=== PATIENT | male | born 1970 ===

== ENCOUNTER 2018-10-06 17:18 | Observation (INO) | payer SELFPAY ==
--- NOTE | 2018-10-06 17:55 | ED PDOC ---
HPI:STROKE - Time Time: 17:45 - Historian Historian: Patient - Chief Complaint Chief Complaint: Facial droop (left sided), other (left arm heaviness) - Timing Timing: Currently Symptomatic - Notes: Notes:: 47 year old male with no significant past medical history presents to the ED with left sided facial droop and left arm heaviness present on waking up. Patidalila white reports he had left sided, posterior head pain x4 days ago. Yesterday, patient noticed his left eye was tearing. This morning he woke up with left side facial droop, trouble closing his left eye, and left arm heaviness. Patient denies any type of pain, weakness or trouble ambulating. No symptoms elsewhere. No neck pain. PMD: Adelaida NIHSS Stroke Scale - Date/Time Evaluation Performed Date Performed: 10/06/18 Time Performed: 17:46 When Was NIHSS Performed: Baseline - How Severe is the Stroke Level of Consciousness: 0=Alert LOC to Questions: 0=Both comments correct LOC to commands: 0=Obeys both correctly Best Gaze: 0=Normal Visual: 0=No visual loss Facial: 2=Partial (lower face paralysis) Motor Arm - Left: 0=No drift Motor Arm - Right: 0=No drift Motor Leg - Left: 0=No drift Motor Leg - Right: 0=No drift Limb Ataxia: 0=Absent Sensory: 0=Normal Best Language: 0=No aphasia Dysarthia: 0=Normal articulation Extinction & Inattention (Neglect): 0=Normal, no object Score: 2 rTPA Inclusion/Exclusion - Refusal of Treatment Patient Refused Treatment: No - Inclusion Criteria for Altepase Patient is 18 years or Older: Yes The Clinical Diagnosis of Ischemic Stroke That is Causing a Potentially Disabling Neurological Deficit: No Time of Onset is Well Established to be Less Than 270 Minute Before Treatment Would Begin: No Risk/Benefit Discussed With Patient/Family Member Present: No - Exclusion Criteria for Altepase Uncontrolled Hypertension at Time of Treatment (Systolic BP above 185 or Diastolic BP above 110 mmHg): No Past Medical History Reviewed: Historical Data, Nursing Documentation, Vital Signs Vital Signs: Last Vital Signs Temp 98.2 F 10/06/18 17:43 Pulse 78 10/06/18 17:43 Resp 16 10/06/18 17:43 BP 139/88 10/06/18 17:43 Pulse Ox 99 10/06/18 17:43 - Medical History PMH: HTN - Family History Family History: States: Unknown Family Hx - Home Medications Home Medications: Ambulatory Orders Medication Instructions Recorded No Known Home Med 10/06/18 - Allergies Allergies/Adverse Reactions: Allergies Allergy/AdvReac Type Severity Reaction Status Date / Time No Known Allergies Allergy Verified 10/06/18 17:45 Review of Systems ROS Statement: Except As Marked, All Systems Reviewed And Found Negative Eyes: Positive for: Other (blurry vision ) Neurological: Positive for: Other (left arm heaviness, left sided facial droop). Negative for: Dizziness Physical Exam - Reviewed Nursing Documentation Reviewed: Yes Vital Signs Reviewed: Yes - Physical Exam Appears: Positive for: Non-toxic, No Acute Distress Head Exam: Positive for: ATRAUMATIC, NORMAL INSPECTION, NORMOCEPHALIC Skin: Positive for: Normal Color, Warm, DRY Eye Exam: Positive for: EOMI, PERRL, Other (left lower lide mild swelling). Negative for: Conjunctival injection, Scleral icterus ENT: Negative for: Nasal Congestion, Pharyngeal Erythema Cardiovascular/Chest: Positive for: Regular Rate, Rhythm Respiratory: Positive for: Normal Breath Sounds Gastrointestinal/Abdominal: Positive for: Soft. Negative for: Tenderness Back: Positive for: Normal Inspection. Negative for: L CVA Tenderness, R CVA Tenderness Extremity: Positive for: Normal ROM. Negative for: Tenderness, Pedal Edema Neurologic/Psych: Positive for: Alert, Oriented, Facial Droop (left lower), Other (equal strength). Negative for: Motor/Sensory Deficits, Aphasia - Laboratory Results Result Diagrams: 10/06/18 18:00 10/06/18 18:00 Lab Results: 386 glucose and elevated chol - ECG ECG: Positive for: Interpreted By Me, Viewed By Me ECG Rhythm: Positive for: Normal QRS, Normal ST Segment, Sinus Rhythm O2 Sat by Pulse Oximetry: 99 (RA) Pulse Ox Interpretation: Normal - Radiology X-Ray: Interpreted by Me, Viewed By Me - CT Scan/US ct Other Rad Studies (CT/US): Read By Radiologist Other Rad Interpretation: no acute - Progress ED Course And Treament: 2029: Spoke with Dr. Rodriguez. Will admit tele obs. Dr. Son states it is not his pt. Wants hospitalist. Pt. pain free. Still has lower droop. 2041: Stable. Spoke with Dr. Ojeda. Will consult. Wants asa and mri in the morning. Medical Decision Making Medical Decision Making: Time: 1745 Code stroke activated. Time: 1745 --Type and screen --CT head --EKG --CMP --Hemoglobin A1C --Lipid panel --Troponin --CXR --NS --Glucose Time:1753 CT Head FINDINGS: HEMORRHAGE: No intracranial hemorrhage. BRAIN: No mass effect or edema. No atrophy or chronic microvascular ischemic changes. VENTRICLES: Unremarkable. No hydrocephalus. CALVARIUM: Unremarkable. PARANASAL SINUSES: Unremarkable as visualized. No significant inflammatory changes. MASTOID AIR CELLS: Unremarkable as visualized. No inflammatory changes. OTHER FINDINGS: None. IMPRESSION: No acute intracranial pathology. Findings discussed with Dr. Amezcua by Dr. Santamaria at 5:57 p.m. on 10/06/2018. Scribe Attestation: Documented by Katlyn Real, acting as a scribe for Duane Amezcua MD. Provider Scribe Attestation: All medical record entries made by the Scribe were at my direction and personally dictated by me. I have reviewed the chart and agree that the record accurately reflects my personal performance of the history, physical exam, medical decision making, and the department course for this patient. I have also personally directed, reviewed, and agree with the discharge instructions and disposition. Disposition - Clinical Impression Clinical Impression: Hypercholesteremia, Hyperglycemia, TIA (transient ischemic attack) - Patient ED Disposition Is Patient to be Admitted: Yes Counseled Patient/Family Regarding: Studies Performed, Diagnosis - Disposition Disposition Time: 20:34 Condition: FAIR - Pt Status Changed To: Hospital Disposition Of: Observation - POA Present On Arrival: Poor Glycemic Control
--- NOTE | 2018-10-06 18:02 | CT ---
Date of service: 10/06/2018 PROCEDURE: CT HEAD WITHOUT CONTRAST. HISTORY: code stroke COMPARISON: None available. TECHNIQUE: Axial computed tomography images were obtained through the head/brain without intravenous contrast. Radiation dose: Total exam DLP = 863.31 mGy-cm. This CT exam was performed using one or more of the following dose reduction techniques: Automated exposure control, adjustment of the mA and/or kV according to patient size, and/or use of iterative reconstruction technique. FINDINGS: HEMORRHAGE: No intracranial hemorrhage. BRAIN: No mass effect or edema. No atrophy or chronic microvascular ischemic changes. VENTRICLES: Unremarkable. No hydrocephalus. CALVARIUM: Unremarkable. PARANASAL SINUSES: Unremarkable as visualized. No significant inflammatory changes. MASTOID AIR CELLS: Unremarkable as visualized. No inflammatory changes. OTHER FINDINGS: None. IMPRESSION: No acute intracranial pathology. Findings discussed with Dr. Amezcua by Dr. Santamaria at 5:57 p.m. on 10/06/2018.
[2018-10-06] MEDS: Sodium Chloride 0.9% 1,000 ML IV SCH (18:03)
[2018-10-06 18:16] LABS: BASO % 0.5 % (0.0-2.0); EOS # 0.1 K/uL (0.0-0.7); EOS % 1.3 % (0.0-4.0); HEMOGLOBIN 16.8 g/dL (12.0-18.0); LYMPH # 1.9 K/uL (1.0-4.3); LYMPH % 29.7 % (20.0-40.0); MEAN CELL VOLUME 86.8 fl (80.0-94.0); MEAN CORPUSCULAR HEMOGLOBIN 29.6 pg (27.0-31.0); MEAN CORPUSCULAR HGB CONC 34.1 g/dL (33.0-37.0); MEAN PLATELET VOLUME 11.3 fl (7.2-11.7); MONO # 0.5 K/uL (0.0-0.8); MONO % 8.1 % (0.0-10.0); NEUT # 3.9 K/uL (1.8-7.0); NEUT % 60.4 % (50.0-75.0); RBC 5.68 Mil/uL (4.40-5.90); RED CELL DISTRIBUTION WIDTH 12.7 % (11.5-14.5); WHITE BLOOD COUNT 6.4 K/uL (4.8-10.8)
[2018-10-06 18:21] LABS: INR 0.9; PROTHROMBIN TIME 10.5 Seconds (9.8-13.1)
[2018-10-06 18:22] LABS: ALB/GLOB RATIO 1.3 (1.0-2.1); ALBUMIN 4.4 g/dL (3.5-5.0); ALT/SGPT 52 U/L (21-72); AST/SGOT 24 U/L (17-59); BLOOD UREA NITROGEN 9 mg/dl (9-20); CALCIUM 9.5 mg/dL (8.4-10.2); GFR NON-AFRICAN AMERICAN > 60; HDL CHOLESTEROL 42 MG/DL (30-70)
[2018-10-06 18:24] LABS: PARTIAL THROMBOPLASTIN TIME 28.4 Seconds (25.6-37.1)
[2018-10-06 18:32] LABS: LDL CHOLESTEROL 122 mg/dL (0-129)
[2018-10-06] MEDS ORDERED: Insulin Regular 100 units/ml IV STA (19:48)
[2018-10-06] MEDS ORDERED: Insulin Regular 100 units/ml ONE (20:43)
[2018-10-06] MEDS ORDERED: Glucagon Recombinant 1 mg Inj IM PRN (21:04)
[2018-10-06] MEDS ORDERED: Dextrose 50% SYRINGE Inj (50 ml) IV PRN (21:04)
--- NOTE | 2018-10-06 21:17 | CP.PCM.HP ---
<Shireen Arevalo - Last Filed: 10/06/18 22:58> History of Present Illness - History of Present Illness History of Present Illness: 47-year-old male with no past medical history presents for left-sided facial droop (forehead sparing) with numbness, left arm "heaviness" and left eye injection with tearing which began earlier today (about 12 hours prior to ED presentation). He also reports a 4 day duration of left ear pain localized to behind his ear (mastoid area) associated with sinusitis-like symptoms. Pain 5/10 and does not radiate, no alleviating or aggravating factors. Admits to unil ateral blurry vision due to the left eye tearing but denies painless loss of vision/amaurosis fugax and floaters. No loss of strength, syncope or recent head trauma. Denies fever, chills, tinnitus, vertigo, ear drainage, photophobia, slurred speech, weight loss, chest pain, difficulty breathing, headache, SOB and recent swimming. PMD: denies PMH: denies Meds: denies FHx: Father - DM2, Brother - CVA, DM2 Social: 5-6 cigarettes/day x10+ years, denies alcohol and illicit drugs Surgical Hx: denies ED Course: Vitals: BP 139/88 HR 78 RR 16 SPO2 99% (RA) -CBC: wnl -CMP: wnl -Glucose 386 -CT head wnl, no acute cranial pathology -Hemoglobin A1C pending -Lipid panel: triglycerides 392, cholesterol 217 -Troponin <0.0120 -EKG -CXR: no active disease, pending final read -NS bolus -Insulin 5 units STAT Present on Admission - Present on Admission Any Indicators Present on Admission: No Review of Systems - EENT Eyes: As Per HPI Nose/Mouth/Throat: As Per HPI - Cardiovascular Cardiovascular: absent: Chest Pain, Leg Edema, Lightheadedness, Palpitations - Respiratory Respiratory: absent: Cough, Dyspnea, Chest Congestion - Gastrointestinal Gastrointestinal: absent: Abdominal Pain - Genitourinary Genitourinary: absent: Dysuria - Musculoskeletal Musculoskeletal: absent: Back Pain - Neurological Neurological: As Per HPI - Psychiatric Psychiatric: absent: Anxiety Past Patient History - Past Social History Smoking Status: Light Smoker < 10 Cigarettes Daily - CARDIAC Hx Hypertension: Yes - PSYCHIATRIC Hx Substance Use: No - SURGICAL HISTORY Hx Surgeries: No Meds Allergies/Adverse Reactions: Allergies Allergy/AdvReac Type Severity Reaction Status Date / Time No Known Allergies Allergy Verified 10/06/18 17:45 Physical Exam - Constitutional Appears: Non-toxic - Eye Exam Eye Exam: Conjunctival injection (left), Periorbital swelling (left) Pupil Exam: PERRL Additional comments: denies pain with movement, CN 2,3,4,6 intact, increased tearing (clear) - ENT Exam ENT Exam: Mucous Membranes Moist Additional comments: left mouth droop (forehead sparing), exquisitely tender behind L ear (x 4day duration), erythema, induration, tenderness and swelling noted in area and L submandibular, excessive cerumen noted in L canal - Expanded ENT Exam Expanded Ear exam: absent: External Canal Tenderness TM/Canal Exam: Mastoid Tenderness: Left Mouth exam: tongue normal. absent: drooling (left mouth droop), tongue elevation Teeth exam: normal external inspection Throat exam: Normal Inspection - Neck Exam Neck exam: Positive for: Tenderness (left, submandibular) Additional comments: left: mild erythema and swelling - Respiratory Exam Respiratory Exam: NORMAL BREATHING PATTERN - Cardiovascular Exam Cardiovascular Exam: REGULAR RHYTHM - GI/Abdominal Exam GI & Abdominal Exam: Soft. absent: Tenderness - Neurological Exam Neurological exam: Alert, CN II-XII Intact (left mouth droop, all other CN intact), Oriented x3 - Expanded Neurological Exam Expanded Cranial nerves: Facial Palsey w/Forehead Movement: Abnormal Left, Facial Sensation: Abnormal Left, Tongue Deviation: Normal Neuro motor strength exam: Left Upper Extremity: 5, Right Upper Extremity: 5, Left Lower Extremity: 5, Right Lower Extremity: 5 - Psychiatric Exam Psychiatric exam: Normal Affect, Normal Mood - Skin Skin Exam: Dry, Intact, Normal Color, Warm Results - Vital Signs Recent Vital Signs: Last Vital Signs Temp 98.2 F 10/06/18 17:43 Pulse 92 H 10/06/18 20:49 Resp 16 10/06/18 20:49 BP 144/97 H 10/06/18 20:49 Pulse Ox 98 10/06/18 20:49 - Labs Result Diagrams: 10/06/18 18:00 10/06/18 18:00 Labs: Laboratory Results - last 24 hr 10/06/18 10/06/18 10/06/18 18:00 18:00 18:00 WBC 6.4 RBC 5.68 Hgb 16.8 Hct 49.3 MCV 86.8 MCH 29.6 MCHC 34.1 RDW 12.7 Plt Count 100 L MPV 11.3 Neut % (Auto) 60.4 Lymph % (Auto) 29.7 Osborne % (Auto) 8.1 Eos % (Auto) 1.3 Baso % (Auto) 0.5 Neut # (Auto) 3.9 Lymph # (Auto) 1.9 Osborne # (Auto) 0.5 Eos # (Auto) 0.1 Baso # (Auto) 0.0 PT 10.5 INR 0.9 APTT 28.4 Sodium 137 Potassium 4.0 Chloride 99 Carbon Dioxide 23 Anion Gap 19 BUN 9 Creatinine 0.5 L Est GFR ( Amer) > 60 Est GFR (Non-Af Amer) > 60 Random Glucose 386 H Calcium 9.5 Total Bilirubin 0.5 AST 24 ALT 52 Alkaline Phosphatase 221 H Troponin I < 0.0120 Total Protein 7.7 Albumin 4.4 Globulin 3.3 Albumin/Globulin Ratio 1.3 Triglycerides 392 H Cholesterol 217 H LDL Cholesterol Direct 122 HDL Cholesterol 42 Blood Type Antibody Screen BBK History Checked 10/06/18 18:00 WBC RBC Hgb Hct MCV MCH MCHC RDW Plt Count MPV Neut % (Auto) Lymph % (Auto) Osborne % (Auto) Eos % (Auto) Baso % (Auto) Neut # (Auto) Lymph # (Auto) Osborne # (Auto) Eos # (Auto) Baso # (Auto) PT INR APTT Sodium Potassium Chloride Carbon Dioxide Anion Gap BUN Creatinine Est GFR ( Amer) Est GFR (Non-Af Amer) Random Glucose Calcium Total Bilirubin AST ALT Alkaline Phosphatase Troponin I Total Protein Albumin Globulin Albumin/Globulin Ratio Triglycerides Cholesterol LDL Cholesterol Direct HDL Cholesterol Blood Type B POSITIVE Antibody Screen Negative BBK History Checked No verified bt Assessment & Plan - Assessment and Plan (Free Text) Assessment: 47-year-old male with no PMH admitted for new-onset facial drooping and left arm "heaviness" which began about 12 hours prior to presentation. Mansfield's Palsy vs Mastoiditis vs TIA/CVA - CT (10/06): no acute cranial pathology - PE: exquisitely tender behind L ear (x 4day duration), erythema, induration, tenderness and swelling noted in area radiating to L submandibular; concerning for mastoiditis - WBC 6.4 - ASA 325 mg PO, as per Dr Ojeda - Neuro consult, recommendations appreciated - Follow-up MRI (10/07) - Follow-up TSH - Follow-up HIV New onset DM2 - Metformin 500 mg BID - Lipitor 20 mg daily - Insulin sliding scale, hypoglycemia protocol - Follow-up HgA1C DVT Prophylaxis - SCDs <Atiya Rodriguez - Last Filed: 10/07/18 04:51> Results - Vital Signs Recent Vital Signs: Last Vital Signs Temp 98.1 F 10/07/18 00:23 Pulse 76 10/07/18 00:23 Resp 19 10/07/18 00:23 BP 113/71 10/07/18 00:23 Pulse Ox 99 10/07/18 00:23 - Labs Result Diagrams: 10/06/18 18:00 10/06/18 18:00 Labs: Laboratory Results - last 24 hr 10/06/18 10/06/18 10/06/18 18:00 18:00 18:00 WBC 6.4 RBC 5.68 Hgb 16.8 Hct 49.3 MCV 86.8 MCH 29.6 MCHC 34.1 RDW 12.7 Plt Count 100 L MPV 11.3 Neut % (Auto) 60.4 Lymph % (Auto) 29.7 Osborne % (Auto) 8.1 Eos % (Auto) 1.3 Baso % (Auto) 0.5 Neut # (Auto) 3.9 Lymph # (Auto) 1.9 Osborne # (Auto) 0.5 Eos # (Auto) 0.1 Baso # (Auto) 0.0 PT 10.5 INR 0.9 APTT 28.4 Sodium 137 Potassium 4.0 Chloride 99 Carbon Dioxide 23 Anion Gap 19 BUN 9 Creatinine 0.5 L Est GFR ( Amer) > 60 Est GFR (Non-Af Amer) > 60 POC Glucose (mg/dL) Random Glucose 386 H Calcium 9.5 Total Bilirubin 0.5 AST 24 ALT 52 Alkaline Phosphatase 221 H Troponin I < 0.0120 Total Protein 7.7 Albumin 4.4 Globulin 3.3 Albumin/Globulin Ratio 1.3 Triglycerides 392 H Cholesterol 217 H LDL Cholesterol Direct 122 HDL Cholesterol 42 Blood Type Antibody Screen BBK History Checked 10/06/18 10/06/18 18:00 22:30 WBC RBC Hgb Hct MCV MCH MCHC RDW Plt Count MPV Neut % (Auto) Lymph % (Auto) Osborne % (Auto) Eos % (Auto) Baso % (Auto) Neut # (Auto) Lymph # (Auto) Osborne # (Auto) Eos # (Auto) Baso # (Auto) PT INR APTT Sodium Potassium Chloride Carbon Dioxide Anion Gap BUN Creatinine Est GFR ( Amer) Est GFR (Non-Af Amer) POC Glucose (mg/dL) 219 H Random Glucose Calcium Total Bilirubin AST ALT Alkaline Phosphatase Troponin I Total Protein Albumin Globulin Albumin/Globulin Ratio Triglycerides Cholesterol LDL Cholesterol Direct HDL Cholesterol Blood Type B POSITIVE Antibody Screen Negative BBK History Checked No verified bt Attending/Attestation - Attestation I have personally seen and examined this patient.: Yes I have fully participated in the care of the patient.: Yes I have reviewed all pertinent clinical information: Yes Notes (Text): 10/07/18 04:41 47 year old male no known PMH presented to ED today for ear pain x4 days, and 1 day history of eye tearing, foreheadsparing facial droop, and paresthesia the the left side of his mouth. Patient has retroauricular tenderness, erythema, and some induration. No WBC, afebrile. CT head was negative. Eval to rule out TIA/CVA with MRI in AM, neuro consulted in ED. Initiate zosyn, consider ENT consult AM. Pt also found to be hyperglycemic 300s, will initiate DM therapy.
[2018-10-06] MEDS: Insulin Regular 100 units/ml SC SCH (23:01)
[2018-10-07] MEDS: Sodium Chloride 0.9% 1,000 ML IV SCH (04:55)
[2018-10-07] MEDS ORDERED: Influenza Vaccine (5 YR UP)/PF 60 MCG/0.5 ML SYR IM ONE (05:08)
[2018-10-07] MEDS ORDERED: Pneumococcal 23-Valent Vaccine IM ONE (05:08)
[2018-10-07 05:16] VITALS: RESP 20
[2018-10-07] MEDS: Piperacillin/Tazobact 3.375 GM in Sodium Chloride 0.9% 100 ML IVPB SCH ×2 (05:25→11:40)
[2018-10-07] MEDS ORDERED: Influenza Vaccine 60 mcg/0.5 mL SYR (4YR UP) IM ONE (06:28)
[2018-10-07 08:47] LABS: BASO % 0.4 % (0.0-2.0); EOS # 0.2 K/uL (0.0-0.7); EOS % 3.3 % (0.0-4.0); HEMOGLOBIN 15.3 g/dL (12.0-18.0); LYMPH # 2.5 K/uL (1.0-4.3); LYMPH % 38.1 % (20.0-40.0); MEAN CELL VOLUME 88.2 fl (80.0-94.0); MEAN CORPUSCULAR HEMOGLOBIN 29.6 pg (27.0-31.0); MEAN CORPUSCULAR HGB CONC 33.5 g/dL (33.0-37.0); MEAN PLATELET VOLUME 11.2 fl (7.2-11.7); MONO # 0.5 K/uL (0.0-0.8); MONO % 7.8 % (0.0-10.0); NEUT # 3.3 K/uL (1.8-7.0); NEUT % 50.4 % (50.0-75.0); NRBC % 0.1 % (0.0-0.0); RBC 5.16 Mil/uL (4.40-5.90); RED CELL DISTRIBUTION WIDTH 13.1 % (11.5-14.5); WHITE BLOOD COUNT 6.6 K/uL (4.8-10.8)
[2018-10-07 09:12] LABS: BLOOD UREA NITROGEN 12 mg/dl (9-20); CALCIUM 8.6 mg/dL (8.4-10.2); GFR NON-AFRICAN AMERICAN > 60
--- NOTE | 2018-10-07 09:22 | CARD ---
APPROVED REPORT Date of service: 10/06/2018 EKG Measurement Heart [id number] <Conclusion> Normal sinus rhythm Normal ECG
[2018-10-07] MEDS ORDERED: Gadodiamide 287 MG/ML VIAL (15ML) IV ONE (09:50)
--- NOTE | 2018-10-07 10:29 | CP.PCM.CON ---
History of Present Illness - History of Present Illness History of Present Illness: Neurology Consultation Note: Consult requested by Dr. Atiya Rodriguez The patient is a 47-year-old man with a past medical history of DM, who developed left facial droop, ear pain and some blurry vision of the left eye that started 12 hours prior to presentation to the ED. Labs showed serum glucose of 386 mg/dL. The patient is not on any medications at home. Non-contrast CT scan of the head did not show any acute findings. Aspirin was given in the ED. 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 Review of Systems - Constitutional Constitutional: As Per HPI - EENT Eyes: absent: As Per HPI, Blind Spots, Blurred Vision, Change in Vision, Decreased Night Vision, Diplopia, Discharge, Dry Eye, Exophthalmos, Floaters, Irritation, Itchy Eyes, Loss of Peripheral Vision, Pain, Photophobia, Requires Corrective Lenses, Sees Flashes, Spots in Vision, Tunnel Vision, Other Visual Disturbances, Loss of Vision, Other Ears: absent: As Per HPI, Decreased Hearing, Ear Discharge, Ear Pain, Tinnitus, Abnormal Hearing, Disequilibrium, Dizziness, Other Nose/Mouth/Throat: absent: As Per HPI, Epistaxis, Nasal Congestion, Nasal Discharge, Nasal Obstruction, Nasal Trauma, Nose Pain, Post Nasal Drip, Sinus Pain, Sinus Pressure, Bleeding Gums, Change in Voice, Dental Pain, Dry Mouth, Dysphagia, Halitosis, Hoarsness, Lip Swelling, Mouth Lesions, Mouth Pain, Odynophagia, Sore Throat, Throat Swelling, Tongue Swelling, Facial Pain, Neck Pain, Neck Mass, Other - Cardiovascular Cardiovascular: absent: As Per HPI, Acrocyanosis, Chest Pain, Chest Pain at Rest, Chest Pain with Activity, Claudication, Diaphoresis, Dyspnea, Dyspnea on Exertion, Edema, Irregular Heart Rhythm, Pain Radiating to Arm/Neck/Jaw, Leg Edema, Leg Ulcers, Lightheadedness, Orthopnea, Palpitations, Paroxysmal Nocturnal Dyspnea, Pedal Edema, Radiating Pain, Rapid Heart Rate, Slow Heart Rate, Syncope, Other - Respiratory Respiratory: absent: As Per HPI, Cough, Dyspnea, Hemoptysis, Dyspnea on Exertion, Wheezing, Snoring, Stridor, Pain on Inspiration, Chest Congestion, Excessive Mucous Production, Change in Mucous Color, Pain with Coughing, Other - Gastrointestinal Gastrointestinal: absent: As Per HPI, Abdominal Pain, Belching, Bloating, Change in Bowel Habits, Change in Stool Character, Coffee Ground Emesis, Constipation, Cramping, Diarrhea, Dyspepsia, Dysphagia, Early Satiety, Excessive Flatus, Fecal Incontinence, Heartburn, Hematemesis, Hematochezia, Loose Stools, Melena, Nausea, Odynophagia, Temesmus, Vomiting, Other - Musculoskeletal Musculoskeletal: absent: As Per HPI, Abnormal Gait, Arthralgias, Atrophy, Back Pain, Deformity, Joint Swelling, Limited Range of Motion, Loss of Height, Muscle Cramps, Muscle Weakness, Myalgias, Neck Pain, Numbness, Radiating Pain into Limb, Stiffness, Tingling, Other - Integumentary Integumentary: absent: As Per HPI, Acne, Alopecia, Bleeding Lesions, Change in Hair, Change in Nails, Change in Pigmentation, Changing Lesions, Dry Skin, Erythema, Furuncle, Hirsutism, Lesions, New Lesions, Non-Healing Lesions, Photosensitivity, Pruritus, Rash, Skin Pain, Skin Ulcer, Sores, Striae, Sw elling, Unusual Bruising, Wounds, Jaundice, Other - Neurological Neurological: As Per HPI - Psychiatric Psychiatric: absent: As Per HPI, Abnormal Sleep Pattern, Anhedonia, Anxiety, Auditory Hallucinations, Behavioral Changes, Change in Appetite, Change in Libido, Confusion, Depression, Difficulty Concentrating, Hallucinations, Homicidal Ideation, Hopelessness, Irritability, Memory Loss, Mood Swings, Panic Attacks, Paranoia, Suicidal Ideation, Visual Hallucinations, Tactile Hallucinations, Other - Endocrine Endocrine: absent: As Per HPI, Change in Body Appearance, Change in Libido, Cold Intolorance, Deepening of Voice, Excessive Sweating, Fatigue, Flushing, Heat Intolorance, Increase in Ring/Shoe/Hat Size, Palpitations, Polydipsia, Polyphagia, Polyuria, Other - Hematologic/Lymphatic Hematologic: absent: As Per HPI, Easy Bleeding, Easy Bruising, Lymphadenopathy, Other Past Patient History - Past Medical History & Family History Past Medical History?: Yes - Past Social History Smoking Status: Light Smoker < 10 Cigarettes Daily - CARDIAC Hx Hypertension: Yes - PULMONARY Hx Respiratory Disorders: No - NEUROLOGICAL Hx Neurological Disorder: No - HEENT Hx HEENT Problems: No - RENAL Hx Chronic Kidney Disease: No - ENDOCRINE/METABOLIC Hx Endocrine Disorders: Yes - HEMATOLOGICAL/ONCOLOGICAL Hx Blood Disorders: No - INTEGUMENTARY Hx Dermatological Problems: No - MUSCULOSKELETAL/RHEUMATOLOGICAL Hx Musculoskeletal Disorders: No Hx Falls: No - GASTROINTESTINAL Hx Gastrointestinal Disorders: No - GENITOURINARY/GYNECOLOGICAL Hx Genitourinary Disorders: No - PSYCHIATRIC Hx Substance Use: No - SURGICAL HISTORY Hx Surgeries: No - ANESTHESIA Hx Anesthesia: No Meds Allergies/Adverse Reactions: Allergies Allergy/AdvReac Type Severity Reaction Status Date / Time No Known Allergies Allergy Verified 10/06/18 17:45 - Medications Medications: Current Medications Atorvastatin Calcium (Lipitor) 20 mg PO DAILY [facility] Last Admin: 10/07/18 09:03 Dose: 20 mg Dextrose (Dextrose 50% Inj) 0 ml IV STAT PRN; Protocol PRN Reason: Hypoglycemia Protocol Dextrose (Glutose 15) 0 gm PO ONCE PRN; Protocol PRN Reason: Hypoglycemia Protocol Glucagon (Glucagen Diagnostic Kit) 0 mg IM STAT PRN; Protocol PRN Reason: Hypoglycemia Protocol Sodium Chloride (Sodium Chloride 0.9%) 1,000 mls @ 100 mls/hr IV .Q10H [facility] Last Admin: 10/07/18 04:55 Dose: 100 mls/hr Piperacillin Sod/Tazobactam (Sod 3.375 gm/ Sodium Chloride) 100 mls @ 100 mls/hr IVPB Q6H [facility]; Protocol Last Admin: 10/07/18 05:25 Dose: 100 mls/hr Insulin Human Regular (Humulin R) 0 units SC ACHS [facility]; Protocol Last Admin: 10/06/18 23:01 Dose: Not Given Metformin HCl (Glucophage) 500 mg PO BIDWM [facility] Physical Exam - Constitutional Appears: Well - Head Exam Head Exam: ATRAUMATIC, NORMAL INSPECTION, NORMOCEPHALIC - Eye Exam Eye Exam: EOMI, Normal appearance, PERRL Pupil Exam: NORMAL ACCOMODATION, PERRL - ENT Exam ENT Exam: Mucous Membranes Moist, Normal Exam - Neck Exam Neck exam: Positive for: Normal Inspection - Respiratory Exam Respiratory Exam: Clear to Auscultation Bilateral, NORMAL BREATHING PATTERN - Cardiovascular Exam Cardiovascular Exam: REGULAR RHYTHM, +S1, +S2 - GI/Abdominal Exam GI & Abdominal Exam: Normal Bowel Sounds, Soft. absent: Tenderness - Rectal Exam Rectal Exam: Deferred - Extremities Exam Extremities exam: Positive for: normal inspection - Back Exam Back exam: NORMAL INSPECTION - Neurological Exam Neurological exam: Alert, CN II-XII Intact, Normal Gait, Oriented x3, Reflexes Normal Additional comments: Left CN 7 palsy with difficulty in eye closure and forehead wrinkling, left facial droop. - Psychiatric Exam Psychiatric exam: Normal Affect, Normal Mood - Skin Skin Exam: Dry, Intact, Normal Color, Warm Results - Vital Signs Recent Vital Signs: Last Vital Signs Temp 98.7 F 10/07/18 07:55 Pulse 66 10/07/18 07:55 Resp 20 10/07/18 07:55 BP 108/58 L 10/07/18 07:55 Pulse Ox 98 10/07/18 07:55 - Labs Result Diagrams: 10/07/18 08:28 10/07/18 08:23 Labs: Laboratory Results - last 24 hr 10/06/18 10/06/18 10/06/18 18:00 18:00 18:00 WBC 6.4 RBC 5.68 Hgb 16.8 Hct 49.3 MCV 86.8 MCH 29.6 MCHC 34.1 RDW 12.7 Plt Count 100 L MPV 11.3 Neut % (Auto) 60.4 Lymph % (Auto) 29.7 [place] % (Auto) 8.1 Eos % (Auto) 1.3 Baso % (Auto) 0.5 Neut # (Auto) 3.9 Lymph # (Auto) 1.9 [place] # (Auto) 0.5 Eos # (Auto) 0.1 Baso # (Auto) 0.0 ESR PT 10.5 INR 0.9 APTT 28.4 Sodium 137 Potassium 4.0 Chloride 99 Carbon Dioxide 23 Anion Gap 19 BUN 9 Creatinine 0.5 L Est GFR ( Amer) > 60 Est GFR (Non-Af Amer) > 60 POC Glucose (mg/dL) Random Glucose 386 H Calcium 9.5 Total Bilirubin 0.5 AST 24 ALT 52 Alkaline Phosphatase 221 H Troponin I < 0.0120 Total Protein 7.7 Albumin 4.4 Globulin 3.3 Albumin/Globulin Ratio 1.3 Triglycerides 392 H Cholesterol 217 H LDL Cholesterol Direct 122 HDL Cholesterol 42 TSH 3rd Generation HIV-1 Ab Rapid Screen Blood Type Antibody Screen BBK History Checked 10/06/18 10/06/18 10/07/18 18:00 22:30 05:25 WBC Cancelled RBC Cancelled Hgb Cancelled Hct Cancelled MCV Cancelled MCH Cancelled MCHC Cancelled RDW Cancelled Plt Count Cancelled MPV Neut % (Auto) Lymph % (Auto) [place] % (Auto) Eos % (Auto) Baso % (Auto) Neut # (Auto) Lymph # (Auto) [place] # (Auto) Eos # (Auto) Baso # (Auto) ESR Cancelled PT INR APTT Sodium Potassium Chloride Carbon Dioxide Anion Gap BUN Creatinine Est GFR ( Amer) Est GFR (Non-Af Amer) POC Glucose (mg/dL) 219 H Random Glucose Calcium Total Bilirubin AST ALT Alkaline Phosphatase Troponin I Total Protein Albumin Globulin Albumin/Globulin Ratio Triglycerides Cholesterol LDL Cholesterol Direct HDL Cholesterol TSH 3rd Generation HIV-1 Ab Rapid Screen Blood Type B POSITIVE Antibody Screen Negative BBK History Checked No verified bt 10/07/18 10/07/18 10/07/18 05:25 05:25 06:27 WBC RBC Hgb Hct MCV MCH MCHC RDW Plt Count MPV Neut % (Auto) Lymph % (Auto) [place] % (Auto) Eos % (Auto) Baso % (Auto) Neut # (Auto) Lymph # (Auto) [place] # (Auto) Eos # (Auto) Baso # (Auto) ESR PT INR APTT Sodium Cancelled Potassium Cancelled Chloride Cancelled Carbon Dioxide Cancelled Anion Gap Cancelled BUN Cancelled Creatinine Cancelled Est GFR ( Amer) Cancelled Est GFR (Non-Af Amer) Cancelled POC Glucose (mg/dL) 192 H Random Glucose Cancelled Calcium Cancelled Total Bilirubin AST ALT Alkaline Phosphatase Troponin I Total Protein Albumin Globulin Albumin/Globulin Ratio Triglycerides Cholesterol LDL Cholesterol Direct HDL Cholesterol TSH 3rd Generation Cancelled HIV-1 Ab Rapid Screen Non reactive Blood Type Antibody Screen BBK History Checked 10/07/18 10/07/18 10/07/18 08:23 08:28 08:28 WBC 6.6 RBC 5.16 Hgb 15.3 Hct 45.5 MCV 88.2 MCH 29.6 MCHC 33.5 RDW 13.1 Plt Count 102 L MPV 11.2 Neut % (Auto) 50.4 Lymph % (Auto) 38.1 [place] % (Auto) 7.8 Eos % (Auto) 3.3 Baso % (Auto) 0.4 Neut # (Auto) 3.3 Lymph # (Auto) 2.5 [place] # (Auto) 0.5 Eos # (Auto) 0.2 Baso # (Auto) 0.0 ESR 8 PT INR APTT Sodium 137 Potassium 4.2 Chloride 102 Carbon Dioxide 26 Anion Gap 13 BUN 12 Creatinine 0.6 L Est GFR ( Amer) > 60 Est GFR (Non-Af Amer) > 60 POC Glucose (mg/dL) Random Glucose 216 H Calcium 8.6 Total Bilirubin AST ALT Alkaline Phosphatase Troponin I Total Protein Albumin Globulin Albumin/Globulin Ratio Triglycerides Cholesterol LDL Cholesterol Direct HDL Cholesterol TSH 3rd Generation HIV-1 Ab Rapid Screen Non reactive Blood Type Antibody Screen BBK History Checked Assessment & Plan (1) Mansfield's palsy Assessment and Plan: MRI brain does not show any area of restricted diffusion, therefor stroke is ruled out. I recommend starting treatment with Prednisone and Valtrex for treatment for Mansfield's Palsy. Obtain and HSV PCR, and if negative, then Valtrex can be stopped. He will need very close monitoring of serum glucose due to newly diagnosed DM, especially while on steroids. Thank you for this consultation. Status: Acute
--- NOTE | 2018-10-07 10:56 | CP.PCM.PN ---
Objective - Vital Signs/Intake and Output Vital Signs (last 24 hours): Temp Pulse Resp BP Pulse Ox 98.7 F 66 20 108/58 L 98 10/07/18 07:55 10/07/18 07:55 10/07/18 07:55 10/07/18 07:55 10/07/18 07:55 - Medications Medications: Current Medications Atorvastatin Calcium (Lipitor) 20 mg PO DAILY [facility] Last Admin: 10/07/18 09:03 Dose: 20 mg Dextrose (Dextrose 50% Inj) 0 ml IV STAT PRN; Protocol PRN Reason: Hypoglycemia Protocol Dextrose (Glutose 15) 0 gm PO ONCE PRN; Protocol PRN Reason: Hypoglycemia Protocol Glucagon (Glucagen Diagnostic Kit) 0 mg IM STAT PRN; Protocol PRN Reason: Hypoglycemia Protocol Sodium Chloride (Sodium Chloride 0.9%) 1,000 mls @ 100 mls/hr IV .Q10H [facility] Last Admin: 10/07/18 04:55 Dose: 100 mls/hr Piperacillin Sod/Tazobactam (Sod 3.375 gm/ Sodium Chloride) 100 mls @ 100 mls/hr IVPB Q6H [facility]; Protocol Last Admin: 10/07/18 05:25 Dose: 100 mls/hr Insulin Human Regular (Humulin R) 0 units SC ACHS [facility]; Protocol Last Admin: 10/06/18 23:01 Dose: Not Given Metformin HCl (Glucophage) 500 mg PO BIDWM [facility] - Labs Labs: 10/07/18 08:28 10/07/18 08:23 PT 10.5 Seconds (9.8-13.1) 10/06/18 18:00 INR 0.9 10/06/18 18:00 APTT 28.4 Seconds (25.6-37.1) 10/06/18 18:00
--- NOTE | 2018-10-07 11:00 | RAD ---
Date of service: 10/06/2018 HISTORY: Code Stroke COMPARISON: No prior. FINDINGS: LUNGS: No active pulmonary disease. PLEURA: No significant pleural effusion identified, no pneumothorax apparent. CARDIOVASCULAR: No aortic atherosclerotic calcification present. Normal cardiac size. No pulmonary vascular congestion. OSSEOUS STRUCTURES: No significant abnormalities. VISUALIZED UPPER ABDOMEN: Normal. OTHER FINDINGS: None. IMPRESSION: No active disease.
[2018-10-07 12:52] VITALS: BP 131/54; PULSE 100; TEMP 99.2; O2SAT 97
[2018-10-07] MEDS: Insulin Regular 100 units/ml SC SCH (13:21)
--- NOTE | 2018-10-07 13:43 | MRI ---
Date of service: 10/07/2018 PROCEDURE: MRI BRAIN WITH AND WITHOUT CONTRAST HISTORY: ear pain, facial droop/numb, rule out mastoiditis COMPARISON: None available. TECHNIQUE: Multiplanar, multisequence MR images of the brain were obtained with and without intravenous contrast enhancement. 16 mL of Omniscan FINDINGS: HEMORRHAGE: None DWI: No evidence of an acute or early subacute infarction. BRAIN PARENCHYMA: No mass,mass effect or edema. No atrophy or chronic microvascular ischemic changes. ENHANCEMENT: No abnormal intracranial enhancement. VENTRICLES: Unremarkable. No hydrocephalus. CRANIUM: Unremarkable. ORBITS: Grossly unremarkable. PARANASAL SINUSES/MASTOIDS: Clear VASCULAR SYSTEM: Skull base flow voids intact. OTHER FINDINGS: None . IMPRESSION: Unremarkable pre and post contrast enhanced MRI of the brain. No evidence of mastoiditis
--- NOTE | 2018-10-07 14:35 | CP.PCM.DIS ---
Provider - Provider Date of Admission: 10/06/18 20:32 Attending physician: Atiya Rodriguez DO Consults: 10/06/18 20:42 Neurology Consult Stat Comment: Consulting Provider: Dank Ojeda Consulting Physician: Dank Ojeda Reason for Consult: tia Time Spent in preparation of Discharge (in minutes): 35 Diagnosis - Discharge Diagnosis (1) Mansfield's palsy Status: Acute (2) Diabetes Status: Chronic Hospital Course - Lab Results Lab Results: Most Recent Lab Values WBC 6.6 K/uL (4.8-10.8) 10/07/18 08:28 RBC 5.16 Mil/uL (4.40-5.90) 10/07/18 08:28 Hgb 15.3 g/dL (12.0-18.0) 10/07/18 08:28 Hct 45.5 % (35.0-51.0) 10/07/18 08:28 MCV 88.2 fl (80.0-94.0) 10/07/18 08:28 MCH 29.6 pg (27.0-31.0) 10/07/18 08:28 MCHC 33.5 g/dL (33.0-37.0) 10/07/18 08:28 RDW 13.1 % (11.5-14.5) 10/07/18 08:28 Plt Count 102 K/uL (130-400) L 10/07/18 08:28 MPV 11.2 fl (7.2-11.7) 10/07/18 08:28 Neut % (Auto) 50.4 % (50.0-75.0) 10/07/18 08:28 Lymph % (Auto) 38.1 % (20.0-40.0) 10/07/18 08:28 [place] % (Auto) 7.8 % (0.0-10.0) 10/07/18 08:28 Eos % (Auto) 3.3 % (0.0-4.0) 10/07/18 08:28 Baso % (Auto) 0.4 % (0.0-2.0) 10/07/18 08:28 Neut # (Auto) 3.3 K/uL (1.8-7.0) 10/07/18 08:28 Lymph # (Auto) 2.5 K/uL (1.0-4.3) 10/07/18 08:28 [place] # (Auto) 0.5 K/uL (0.0-0.8) 10/07/18 08:28 Eos # (Auto) 0.2 K/uL (0.0-0.7) 10/07/18 08:28 Baso # (Auto) 0.0 K/uL (0.0-0.2) 10/07/18 08:28 ESR 8 mm/hr (0-15) 10/07/18 08:28 PT 10.5 Seconds (9.8-13.1) 10/06/18 18:00 INR 0.9 10/06/18 18:00 APTT 28.4 Seconds (25.6-37.1) 10/06/18 18:00 Sodium 137 mmol/l (132-148) 10/07/18 08:23 Potassium 4.2 MMOL/L (3.6-5.0) 10/07/18 08:23 Chloride 102 mmol/L (98-107) 10/07/18 08:23 Carbon Dioxide 26 mmol/L (22-30) 10/07/18 08:23 Anion Gap 13 (10-20) 10/07/18 08:23 BUN 12 mg/dl (9-20) 10/07/18 08:23 Creatinine 0.6 mg/dl (0.8-1.5) L 10/07/18 08:23 Est GFR ( Amer) > 60 10/07/18 08:23 Est GFR (Non-Af Amer) > 60 10/07/18 08:23 POC Glucose (mg/dL) 192 mg/dL (65-110) H 10/07/18 06:27 Random Glucose 216 mg/dL (75-110) H 10/07/18 08:23 Hemoglobin A1c 13.6 % (4.2-6.5) H 10/06/18 18:00 Calcium 8.6 mg/dL (8.4-10.2) 10/07/18 08:23 Total Bilirubin 0.5 mg/dl (0.2-1.3) 10/06/18 18:00 AST 24 U/L (17-59) 10/06/18 18:00 ALT 52 U/L (21-72) 10/06/18 18:00 Alkaline Phosphatase 221 U/L (38-126) H 10/06/18 18:00 Troponin I < 0.0120 ng/mL (0.00-0.120) 10/06/18 18:00 Total Protein 7.7 G/DL (6.3-8.2) 10/06/18 18:00 Albumin 4.4 g/dL (3.5-5.0) 10/06/18 18:00 Globulin 3.3 gm/dL (2.2-3.9) 10/06/18 18:00 Albumin/Globulin Ratio 1.3 (1.0-2.1) 10/06/18 18:00 Triglycerides 392 mg/DL (0-149) H 10/06/18 18:00 Cholesterol 217 mg/dL (0-199) H 10/06/18 18:00 LDL Cholesterol Direct 122 mg/dL (0-129) 10/06/18 18:00 HDL Cholesterol 42 MG/DL (30-70) 10/06/18 18:00 Procalcitonin 0.05 NG/ML (0.19-0.49) L 10/07/18 05:25 TSH 3rd Generation Cancelled 10/07/18 05:25 HIV-1 Ab Rapid Screen Non reactive (NON REAC) 10/07/18 08:28 Blood Type B POSITIVE 10/06/18 18:00 Blood Type Confirm B POSITIVE 10/07/18 08:28 Antibody Screen Negative 10/06/18 18:00 BBK History Checked No verified bt 10/06/18 18:00 - Hospital Course Hospital Course: 47-year-old male with no past medical history presented to [facility] ED with left- sided facial droop (forehead sparing) with numbness with 1 day duration and a 4 day duration of posterior ear pain. Pt had MRI Brain which ruled out stroke and was evaluated by neurology who diagnosed him with Mansfield's Palsy. Pt was discharged on Prednisone and Valtrex for 1 week duration. Pt was also noted to have elevated sugars and hemoglobin a1c of 13.6 and he was informed and discharged on Metformin and Glucatrol. Scheudled for follow up in [facility] 10/14/18. Discharge Exam - Head Exam Head Exam: ATRAUMATIC, NORMAL INSPECTION, NORMOCEPHALIC - Eye Exam Eye Exam: Normal appearance - ENT Exam ENT Exam: Mucous Membranes Moist - Respiratory Exam Respiratory Exam: Clear to PA & Lateral - Cardiovascular Exam Cardiovascular Exam: REGULAR RHYTHM - Extremities Exam Extremities exam: normal inspection - Neurological Exam Neurological exam: Alert, Oriented x3 - Psychiatric Exam Psychiatric exam: Normal Affect Discharge Plan - Discharge Medications Prescriptions: GlipiZIDE [Glipizide] 10 mg PO BID 30 Days #30 tab MetFORMIN [glucoPHAGE] 1,000 mg PO BID 30 Days #60 tab Prednisone [Deltasone] 60 mg PO DAILY 7 Days #21 tablet Valacyclovir HCl [Valtrex] 1,000 mg PO TID 7 Days #21 tablet - Follow Up Plan Condition: FAIR Disposition: HOME/ ROUTINE Instructions: Mansfield's Palsy (DC) Additional Instructions: Follow up at the [facility] on 10/14/18 @ 3:40 pm Referrals: [facility] [place] [Outside]
== END 2018-10-07 16:30 | disposition home or self-care (01) ==
LOC: H.ER 17:18 → H.ERHOLD 20:32 → H.TEL 21:22
PROVIDERS: ADMIT Student in an Organized Health Care Education/Training Program; ATTEND Student in an Organized Health Care Education/Training Program
DX: G51.0 Bell's palsy (principal); E11.65 Type 2 diabetes mellitus with hyperglycemia; E78.00 Pure hypercholesterolemia, unspecified; I10 Essential (primary) hypertension; Z23 Encounter for immunization; F17.210 Nicotine dependence, cigarettes, uncomplicated; H92.02 Otalgia, left ear
CPT/HCPCS: 36415; 70450; 70553; 71045; 80048; 80053; 80061; 82948; 83036; 84145; 84484; 85025; 85610; 85651; 85730; 86695; 86696; 86850; 86900; 87390; 90674; 90732; 93005; 99285; A9579; G0008; G0009; G0378; J2543; J7030